=== PATIENT | female | born 1970 | race Caucasian/White ===

== ENCOUNTER → 2021-01-29 14:00 | Outpatient (BNVA) | payer OTHER, SELFPAY | PROVIDERS: PCP Internal Medicine; Visit Provider Urology | DX: R31.29 Other microscopic hematuria (principal); N39.41 Urge incontinence; N39.3 Stress incontinence (female) (male) | CPT/HCPCS: 81002 ==

== ENCOUNTER → 2021-04-08 15:00 | Outpatient (BNVA) | payer OTHER, SELFPAY | PROVIDERS: PCP Internal Medicine; Visit Provider Urology | DX: N30.90 Cystitis, unspecified without hematuria (principal); N39.46 Mixed incontinence; N31.9 Neuromuscular dysfunction of bladder, unspecified; E78.00 Pure hypercholesterolemia, unspecified; E55.9 Vitamin D deficiency, unspecified | CPT/HCPCS: 52000 ==

== ENCOUNTER → 2021-07-20 15:09 | Outpatient (BNVA) | payer OTHER, SELFPAY | PROVIDERS: PCP Internal Medicine; Visit Provider Urology | DX: N30.90 Cystitis, unspecified without hematuria (principal); R31.29 Other microscopic hematuria; N32.81 Overactive bladder; N39.3 Stress incontinence (female) (male); N88.2 Stricture and stenosis of cervix uteri; M79.7 Fibromyalgia; E78.00 Pure hypercholesterolemia, unspecified; E55.9 Vitamin D deficiency, unspecified; Z23 Encounter for immunization; Z79.2 Long term (current) use of antibiotics; Z79.899 Other long term (current) drug therapy | CPT/HCPCS: 52000 ==

== ENCOUNTER → 2023-06-19 10:00 | Outpatient (REF) | payer OTHER, SELFPAY | LOC: HO.SL 10:00 | PROVIDERS: PCP Internal Medicine; Visit Provider Psychiatry & Neurology Neurology | DX: G47.33 Obstructive sleep apnea (adult) (pediatric) (principal) | CPT/HCPCS: 95806 ==

== ENCOUNTER → 2023-06-19 19:00 | Outpatient (BNV) | payer OTHER, SELFPAY | PROVIDERS: PCP Internal Medicine; Visit Provider Internal Medicine | DX: G47.33 Obstructive sleep apnea (adult) (pediatric) (principal) | CPT/HCPCS: 95806 ==

== ENCOUNTER 2023-11-06 08:24 | Outpatient (AMB) | payer OTHER, SELFPAY ==
--- NOTE | 2023-11-06 08:38 | A.OFFVIS_ITS ---
Intake Intake Visit Reasons: Cystitis follow up SET Intake Note: Former Patient of Dr Segura, presents today for a follow-up on Cystitis: Meds- Oxybutynin (not taking at the moment out of refills) Allergies to Antibiotic- No Known Allergies Blood Thinner- None Post Void Residual: 0 mL Solution Professional Required: No Accompanied by: Self / Same As Patient Allergies No Known Allergies [No Known Allergies*] Allergy (Verified 11/06/23 08:42) Medication List - Last Reconciled 11/06/23 by Kiera Avila MD amoxicillin-pot clavulanate 875-125 mg 1 tab PO BID duloxetine 60 mg PO DAILY duloxetine 20 mg PO DAILY fexofenadine 180 mg PO DAILY hydrochlorothiazide 25 mg PO DAILY nortriptyline mg PO oxybutynin chloride ER 10 mg PO DAILY 90 days pregabalin 150 mg PO BID pregabalin 0 mg PO BEDTIME triamcinolone acetonide 0.1% appl topical HPI HPI Comments History of Present Illness Details Luci is a 53 year old female. She has been evaluated and treated in the past by Dr. Segura for microscopic hematuria and irritative voiding symptoms. She was prescribed oxybutynin 10 mg XL daily which she states has helped and since she has been off of the medication her bladder leakage has worsened. Pt is on daily HCTZ. She has been off of prophlaxatic abx for over a year and denies UTI symptoms Microscopic hematuria evaluation 2017 Cytology negative Cystoscopy with biopsy negative - patchy cystitis Imaging negative Associated conditions smoking, denies work place exposure Urinary incontinence Some degree of resolution with treatment for recurrent UTI Combination oxybutynin with trimethoprim 2020 Baseline treatment now oxybutynin Plan: 11/06/23--Oxybutynin 10 mg ER daily FU one year [facility] Medical History Hypercholesterolemia Cervical stenosis (uterine cervix) Fibromyalgia Vitamin D deficiency Stress incontinence Urgency incontinence Surgical History History of surgery Review of Systems Const All systems reviewed & are unremarkable except as noted in HPI and below Reports no additional complaints Eyes Reports no additional complaints ENT Reports no additional complaints Card Denies dyspnea Resp Denies cough and Denies dyspnea GI Reports no additional complaints Reports no additional complaints Musc Reports no additional complaints Skin/Breast Denies rash and Denies unusual bruising Neuro Reports no additional complaints Psych Reports no additional complaints Endo Reports no additional complaints Justin/Lymph Reports no additional complaints Aller/Immun Reports no additional complaints Physical Exam Const General: cooperative, healthy appearing and no acute distress Orientation/consciousness: patient oriented x3 HEENT Head: Yes normal to inspection, Yes normocephalic and Yes atraumatic Eyes Conjunctivae: conjunctivae normal Neck Neck: Yes normal visual inspection and Yes trachea midline Chest Chest palpation & inspection: normal inspection of the chest Resp Effort & Inspection: normal respiratory effort Cardio Rate: regular rate GI Inspection: Yes normal to inspection Palpation (GI): Soft to palpation Skin General skin exam: no rashes or lesions noted Neuro General: patient oriented x3 Extrem General: No edema Psych Appearance: grossly normal Office Procedures Post Void Residual Post Residual Void Post Void Residual (PVR): 0 42615-Fspb Void Residual by ultrasound Results AMB Urinalysis, Automated UA Leukoctes 0 Minh/uL Last Edit by RHYS Lemos on 11/06/23 08:54 UA Nitrite Negative Last Edit by RHYS Lemos on 11/06/23 08:54 UA Urobilinogen 0.2 mg/dL Last Edit by RHYS Lemos on 11/06/23 08:5 4 UA Protein 30 mg/dL Last Edit by RHYS Lemos on 11/06/23 08:54 1+ Karen Trammell 11/06/23 08:54 UA pH 6.5 Last Edit by RHYS Lemos on 11/06/23 08:54 UA Blood 10 Silverio/uL Last Edit by RHYS Lemos on 11/06/23 08:54 UA Specific [place] 1.015 Last Edit by RHYS Lemos on 11/06/23 08: 54 UA Ketone Negative Last Edit by RHYS Lemos on 11/06/23 08:54 UA Bilirubin 0 mg/dL Last Edit by RHYS Lemos on 11/06/23 08:54 UA Glucose 0 mg/dL Last Edit by RHYS Lemos on 11/06/23 08:54 Results Reviewed Results Reviewed: Laboratory Last Values Urine pH (Auto) 6.5 11/06/23 08:51 Specific [place] (Auto) 1.015 11/06/23 08:51 Urine Protein (Auto) 30 mg/dL 11/06/23 08:51 Glucose (UA)(Auto) 0 mg/dL 11/06/23 08:51 Urine Ketones (Auto) Negative 11/06/23 08:51 Urine Blood (Auto) 10 Silverio/uL 11/06/23 08:51 Urine Nitrite (Auto) Negative 11/06/23 08:51 Urine Bilirubin (Auto) 0 mg/dL 11/06/23 08:51 Urine Urobilinogen (Auto) 0.2 mg/dL 11/06/23 08:51 Leukocyte Esterase (Auto) 0 Minh/uL 11/06/23 08:51 Assessment & Plan Assessment & Plan (1) Cystitis: Code(s): N30.90 - Cystitis, unspecified without hematuria (2) Microscopic hematuria: Code(s): R31.29 - Other microscopic hematuria Plan Oxybutynin 10 mg ER daily FU one year Orders: Orders AMB Post Void Residual by ultrasound Today N39.8 - Other specified disorders of urinary system AMB Urinalysis Automated Today Z13.9 - Encounter for screening, unspecified Medications: Refilled oxybutynin chloride ER 10 mg PO DAILY 90 tabs 3RF 90 days N32.81 - Overactive bladder, R39.15 - Urgency of urination Patient Instructions: The patient had an opportunity to ask questions regarding treatment plan. All questions were answered. Laboratory studies and physical exam results were discussed and reviewed in detail. No major barriers to understanding were identified. The patient expressed understanding and agreement with the above treatment plan. The patient is aware they should contact our office by phone for worsening of their current condition or the appearance of new symptoms. Compliance is encouraged with any medications and followup testing that is ordered. It is a privilege to be allowed the opportunity to participate in the urologic care of your patient. If you have any questions or concerns regarding treatment for the above conditions please do not hesitate to contact me. The office telephone contact is [phone]. This note is constructed in part using voice recognition software. While every effort has been made to ensure accuracy hurl shaker errors may have been included. Yours sincerely, Kiera Avila MD Coding Level of Care Code New Pt Level 3 (95055) Diagnoses Cystitis N30.90 Microscopic hematuria R31.29 CPT Codes Post Residual Void - PVR CPT Code: 44212-Hady Void Residual by ultrasound ([id number])
== END 2023-11-06 09:20 | disposition home or self-care (01) ==
PROVIDERS: PCP Internal Medicine; Visit Provider Urology
DX: N30.90 Cystitis, unspecified without hematuria (principal); R31.29 Other microscopic hematuria; Z13.9 Encounter for screening, unspecified
CPT/HCPCS: 99203

== ENCOUNTER → 2023-11-06 08:24 | Outpatient (BNVA) | payer OTHER, SELFPAY | PROVIDERS: PCP Internal Medicine; Visit Provider Urology | DX: N30.91 Cystitis, unspecified with hematuria (principal); R32 Unspecified urinary incontinence | CPT/HCPCS: 51798; 81003 ==

== ENCOUNTER 2025-02-27 16:06 | Outpatient (AMB) | payer MEDICAID, SELFPAY ==
--- OUTSIDE RECORDS SUMMARY | 2025-02-27 16:08 | XMS_ITS | Encounter Summary ---
Author Organization [employer] Address [address] [place] [address] Care Team Providers Care Marketing And Development Coordinator Name Role Phone Kay Logan MD Primary Care Provider [phone] Encounter Details Date Type Department Care Team ([facility] st Contact Info) Description 01/31/2025 Orders Only [facility]S [address] [place], [place] [id number] Provider, MD Alicia Social History Tobacco Use Types Packs/Day Years Used Date Smoking Tobacco: Some Days Cigarettes Passive Smoke Exposure: Past Smokeless Tobacco: Never Alcohol Use Standard Drinks/Week Comments Not Currently 0 (1 standard drink = 0.6 oz pur e alcohol) Housing Stability Answer Date Recorded What is your housing situation today? I have matt sing 01/29/[address] you li ve. Do you have problems with any of the following? None of the above 01/29/2025 Food Insecurity Answer Date Recorded Within the past 12 months, y ou worried that your food would run out before you got money to buy more: Never True 01/29/2025 Within the past 12 months,th e food you bought just didn't last and you didn't have enough money to get more: Never True Transportation Answer Date Recorded In the past 12 months, has l ack of transportation kept you from medical appts, meetings, work or from getting things needed for daily living? No 01/29/2025 Utilities Answer Date Recorded In the past 12 months, has t he electric, gas, oil or water company threatened to shut off services in your home? No 01/29/2025 Internet Access Answer Date Recorded Internet Access Q1 No 01/29/2025 Internet Access Q2 I do not want or need it 01/08 Comments No Sex and Gender Information Value Date Recorded Sex Assigned at Female 07/23/2024 11:59 AM EDT Legal Sex Female 11:49 AM EDT Gender Identity Female 07/23/2024 11:59 AM EDT Sexual Orientation Choose not to disclose 2023 11:59 AM EDT documented as of this encounter Plan of Treatment Upcoming Encounters Date Type Department Care Team (Late st Contact Info) Description 04/30/2025 8:30 AM EDT Office Visit [facility] P[facility]S [address] [place] [address] Kay Logan MD [address] [place] [address] documented as of this encounter Procedures Procedure Name Priority Date/Time Associated Diagnosis Comments HM MAMMOGRAPHY Routine 01/30/2025 4:26 PM EDT documented in this encounter Results * Hm Mammography (01/30/2025 4:26 PM EDT) Anatomical Region Laterality Modality Other Historical Provider HEALTH MAINTENANCE Final Result documented in this encounter Visit Diagnoses Not on filedocumented in this encounter Care Teams Marketing And Development Coordinator Relationship Specialty Start Date End Date Kay Logan MD [address] [place] [address] PCP - General Family Medicine 01/29/25 documented as of this encounter
--- NOTE | 2025-02-27 16:18 | A.OFFVIS_ITS ---
Intake Visit Reasons: 1 yr follow up Intake Note: Patient presents today for a 1 year follow-up Urology Meds- Oxybutynin Allergies to Antibiotic- No Known Allergies Blood Thinner- None PVR: 35mL Human Resources Trainer Required: No Accompanied by: Self / Same As Patient Allergies No Known Allergies (No Known Allergies*) Allergy (Verified 04/28/25 09:44) Medication List - Last Reconciled 02/27/25 by Kiera Avila MD cholecalciferol (vitamin D3) 25 mcg PO DAILY duloxetine 120 mg PO DAILY fexofenadine 180 mg PO DAILY hydrochlorothiazide 25 mg PO DAILY [id number] fum-folic ac 18 mg iron- 400 mcg (One-A-Day Women's Complete) tabs PO omeprazole 20 mg PO DAILY oxybutynin chloride ER 10 mg PO DAILY 90 days HPI Comments Details: 02/27/25-- History of Present Illness The patient is a 54-year-old female presenting with urinary incontinence and bladder spasms. She has been experiencing nocturnal urinary frequency, around three to four times nightly, accompanied by an urgent need to urinate. Bladder control becomes particularly challenging when she forgets to take her oxybutynin. Despite current management, she continues to experience urgency and frequent episodes of incontinence. Symptoms such as a sudden urge to urinate with little warning and episodes of urine gushing are prevalent. The diuretic hydrochlorothiazide, contributing to frequent urination, is noted to potentially exacerbate her symptoms. 10/27/23--Luci is a 53 year old female. She has been evaluated and treated in the past by Dr. Segura for microscopic hematuria and irritative voiding symptoms. She was prescribed oxybutynin 10 mg XL daily which she states has helped and since she has been off of the medication her bladder leakage has worsened. Pt is on daily HCTZ. She has been off of prophlaxatic abx for over a year and denies UTI symptoms Microscopic hematuria evaluation 2017 Cytology negative Cystoscopy with biopsy negative - patchy cystitis Imaging negative Associated conditions smoking, denies work place exposure Urinary incontinence Some degree of resolution with treatment for recurrent UTI Combination oxybutynin with trimethoprim 2020 Baseline treatment now oxybutynin Plan: 11/06/23--Oxybutynin 10 mg ER daily FU one year [facility] Medical History Hypercholesterolemia Cervical stenosis (uterine cervix) Fibromyalgia Vitamin D deficiency Stress incontinence Urgency incontinence Surgical History History of surgery Review of Systems Const All systems reviewed & are unremarkable except as noted in HPI and below Reports no additional complaints Eyes Reports no additional complaints ENT Reports no additional complaints Card Reports no additional complaints Resp Reports no additional complaints GI Reports no additional complaints Reports as per HPI Musc Reports no additional complaints Skin/Breast Reports system reviewed and no additional complaints, except as documented Neuro Reports no additional complaints Psych Reports no additional complaints Endo Reports no additional complaints Justin/Lymph Reports no additional complaints Aller/Immun Reports no additional complaints Assessment & Plan Assessment & Plan (1) Urge incontinence: Code(s): N39.41 - Urge incontinence Category: Medical Plan Plan - Schedule an ultrasound appointment to check your kidneys and bladder. - Continue taking oxybutynin Medications: Refilled oxybutynin chloride ER 10 mg PO DAILY 90 tabs 0RF 90 days R39.15 - Urgency of urination, N32.81 - Overactive bladder Patient Instructions: The patient had an opportunity to ask questions regarding treatment plan. The patient expressed understanding and agreement with the above treatment plan. The patient is aware they should contact our office by phone for worsening of their current condition or the appearance of new symptoms. Compliance is encouraged with any medications and followup testing that is ordered. It is a privilege to be allowed the opportunity to participate in the urologic care of your patient. If you have any questions or concerns regarding treatment for the above conditions please do not hesitate to contact me. The office telephone contact is [phone]. This note is constructed in part using voice recognition software. While every effort has been made to ensure accuracy guncotton packer errors may have been included. Yours sincerely, Kiera Avila MD Scribe Plan - Not visible on output: Patient was informed and verbally consented to the use of an ambient scribe for clinic note documentation during this visit. Coding Level of Care Code Est Pt Level 3 (42039) Diagnoses Urge incontinence N39.41
== END 2025-02-27 17:00 | disposition home or self-care (01) ==
LOC: HO.HUSH 16:07
PROVIDERS: PCP Student in an Organized Health Care Education/Training Program; Visit Provider Urology
DX: N39.41 Urge incontinence (principal)
CPT/HCPCS: 99213

== ENCOUNTER → 2025-02-27 16:06 | Outpatient (BNVA) | payer MEDICAID, SELFPAY | PROVIDERS: PCP Student in an Organized Health Care Education/Training Program; Visit Provider Urology | DX: N39.41 Urge incontinence (principal); Z79.899 Other long term (current) drug therapy | CPT/HCPCS: 99212 ==

== ENCOUNTER 2025-04-21 09:49 | Outpatient (REF) | payer MEDICAID, SELFPAY ==
--- NOTE | ~2025-04-21 | US_ITS ---
CLINICAL HISTORY: N30.90 - Cystitis, unspecified without hematuria US Renal Comparison: None provided Findings: Right kidney normal size and echotexture, 10.3 cm length. 3 x 3 x 3 mm stone of the midpole and 2 x 2 x 3 mm stone of the lower pole. Left kidney normal size and echotexture, 10.5 cm length. No hydronephrosis of either kidney. Normal color Doppler IMPRESSION: Right kidney stones. This document has been electronically signed by: Marisol Greenwood MD on 04/21/2025 16:00:34
--- OUTSIDE RECORDS SUMMARY | 2025-04-21 10:21 | XMS_ITS | Encounter Summary ---
Author Organization [employer] Address [address] [place] [address] Care Team Providers Care Central Service Tech Name Role Phone Kay Logan MD Primary Care Provider [phone] Reason for Visit * Reason Onset Date Comments Nurse Triage 03/19/2025 Encounter Details Date Type Department Care Team ([facility] st Contact Info) Description 03/19/2025 Telephone [facility] [address] [place] [address] Kay Logan MD [address] [place], [place] [id number] Nurse Triage Social History Tobacco Use Types Packs/Day Years Used Date Smoking Tobacco: Some Days Cigarettes Passive Smoke Exposure: Past Smokeless Tobacco: Never Alcohol Use Standard Drinks/Week Comments Not Currently 0 (1 standard drink = 0.6 oz pur e alcohol) Housing Stability Answer Date Recorded What is your housing situation today? I have matt mehta 01/29/[address] you li [...] AM EDT documented as of this encounter Miscellaneous Notes * Telephone Encounter - Shama Jain RN - 03/19/2025 9:10 AM EDT Triage call Pt reports driving to [place] 03/15/25 and started to have moderate low back pain. Pt is concerned that this could indicate a UTI. Pt doesn't have any other symptoms indicating this and hasdx of fibromyalgia so is questioning what is the source of the back pain. Pt has taken muscle relaxer medication as prescribed, aspercream and other topical analgesics as well as tylenol arthritis without relief. Pt denies back injury or heavy lifting. ASK apt in [facility] today at 1120am to rule outUTI. Pt agrees with this disposition. Pt is encouraged to increase liquid intake . Insurance is verified as active prior to booking. Protocol Used: Urinary Symptoms (Adult) Protocol-Based Disposition: See in Office or Video Visit Today or Tomorrow Video visit not offered Positive Triage Question: * Patient wants to be seen * All higher-acuity triage questions were negative Care Advice Discussed: * Reasons To Call Back - Fever occurs - Pain or burning with urination - You become worse * Telephone Encounter - Cedric Crowley - 03/19/2025 8:57 AM EDT Symptom: Back Pain - Not From Injury Outcome: Schedule an urgent appointment (within 1 hour) or talk to a nurse or provider soon Reason: Weakness of the groin area Please contact pt at [phone]. documented in this encounter Plan of Treatment Upcoming Encounters Date Type Department Care Team (Thang vasquez Contact Info) Description 04/30/2025 8:30 AM EDT Office Visit [facility]S [address] [place] [address] Kay Logan MD [address] [place] [address] documented as of this encounter Visit Diagnoses Not on filedocumented in this encounter Care Teams Central Service Tech Relationship Specialty Start Date End Date Kay Logan MD [address] [place] [address] PCP - General Family Medicine 01/29/25 documented as of this encounter
--- OUTSIDE RECORDS SUMMARY | 2025-04-21 10:21 | XMS_ITS | Clinical Summary ---
Author Organization [facility] [address] [place] [address] [place] [id number] Phone Care Team Providers Care Carry In Worker Name Role Phone Jory Keith MD Primary Care Provider [phone] Allergies Active Allergy Reactions Criticality Noted Date Comments Gold Keratinate 01/05/2021 Positive patch test Rosin 01/05/2021 Positive patch test Medications ACETAMINOPHEN ORAL Take by mouth. Activ e albuterol HFA (PROAIR HFA ; PROVENTIL HFA ; VENTOLIN HFA) 90 mcg/actuation inhaler Inhale 2 Puffs into the lungs every 4 hours as needed for Cough or Wheezing. 4 Active betamethasone, augmented, (DIPROLENE-AF) 0.05 % cream Apply topically daily. For 2 wks- skip a wk then start again- DERM Active cholecalciferol (VITAMIN D-3) 25 mcg (1,000 unit) tablet Take by mouth. Ac tive DULoxetine (CYMBALTA) [address] capsule Take 2 capsules (120 mg total) by mouth 1 (one) time each day. 3 Active fexofenadine (DELMI) 180 mg tablet Take 1 tablet (180 mg total) by mouth 1 (one) time each day. 2 Active fluticasone propionate (FLONASE) 50 mcg/actuation nasal spray 2 Sprays by Each Nare route daily. 4 Active multivitamin with minerals (Multiple Vitamin-Mineral s) tablet Take by mouth. Activ e omeprazole (PriLOSEC) [address] capsule Take 1 capsule (20 mg total) by mouth 1 (one) time each day. 4 Active oxyBUTYnin XL (DITROPAN-XL) 10 mg 24 hr tablet Take 1 tablet (10 mg total) by mouth 1 (one) time each day. 1 Active tiZANidine (ZANAFLEX) 2 mg tablet Take 1-2 Tablets by mouth every 8 hours as needed (muscle pain/spasm). 4 Active hydroCHLOROthia zide (HYDRODIURIL) 25 mg tablet TAKE 1 TABLET BY MOUTH EVERY DAY 30 tablet 5 Active Active Problems Problem Noted Date Diagnosed Date Severe obesity (BMI 35.0-35. 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 Low back pain 08/23/2010 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 Encounters Date Type Department Care Team Description 01/30/2025 10:31 AM EDT - 01/30/2025 11:59 PM EDT Hospital Encounter Radiology Department [address] [phone] Encounter for screening mammogram for breast cancer Discharge Disposition: Home or Self Care from Last 3 Months Immunizations Name Administration Dates Next Due Hepatitis B (Xnzedqd-T-Pidel , Recombivax HB-Adult) 19yo and older 07/31/2019,06/28/2019 Influenza trivalent, 0.5mL, preservative free (Fluarix; FluLaval; Fluzone) ages 6mo and older (Afluria) 3 years and older 08/01/2023,07/23/2022,08/22/2021,2019,06/24/2019 Influenza, Unspecified 07/23/2020 Pfizer (ages 12 & older) Biv alent, COVID-19 09/29/2023 Td Tetanus diptheria (Tdvax) 7yo and older 12/17/2003 Tdap Tetanus diptheria acell ular pertussis (Boostrix; Adacel) 7yo and older 10/17/2011 Surgical History Surgery Date Site/Laterality Comments OTHER SURGICAL HISTORY 12/2018 PROCEDURE: MAMMOGRAM WISDOM TOOTH EXTRACTION 04/2010 PROCEDURE: HISTORICAL WISDOM TEETH EXTRACTION; COMMENT: 3 out; hx some parotid swelling COLONOSCOPY 11/02/2012 PROCEDURE: HISTORICAL COLONOSCOPY; COMMENT: normal; repeat in 10 yrs BREAST BIOPSY 2015 Left PROCEDURE: BX BREAST; PERC NEEDLE CORE W/IMAG GUID; COMMENT: lt breast bx-benign OTHER SURGICAL HISTORY PROCEDURE: HISTORICAL SQUAMOUS CELL CA; COMMENT: SCC 04/26 right knee (in situ) CHOLECYSTECTOMY 08/2022 PROCEDURE: HISTORICAL CHOLECYSTECTOMY Medical History Medical History Date Comments Pyelonephritis, unspecified 1993 DX:P yelonephritis, unspecified Allergic rhinitis due to other allergen 06/11/2010 DX:Allergic rhinitis due to other allergen Historical Medical DX 06/11/2010 DX:Xanthel asma Low back pain 08/23/2010 DX:Low back pain 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 DX:Preglaucoma Retinal freckle 08/02/2012 DX:Retinal freck le Hypercholesterolemia 08/05/2013 DX:Hypercho lesterolemia Cervical spinal stenosis 06/08/2016 DX:Cerv ical spinal stenosis; COMMENT: C5-6 History of tibial fracture 07/19/2017 DX:Hi story of tibial fracture; COMMENT: 02/22 tib fib fx, ghazal and plate placed Urinary incontinence 07/19/2017 DX:Urinary incontinence Anxiety 02/20/2019 DX:Anxiety History of squamous cell car cinoma of skin 04/29/2019 DX:History of squamous cell carcinoma of skin; COMMENT: SCC 04/26 right knee (in situ) Itching 09/14/2020 DX:Itching Vitamin D deficiency 10/11/2016 DX:Vitamin D deficiency GERD (gastroesophageal reflux disease) 02/05/2024 DX:GERD (gastroesophageal reflux disease) Hypertension 05/04/2021 Family History Medical History Relation Name Comments Breast cancer Aunt m aunt epilepsy Heart attack Brother Other: epilepsy Daughter Other: peripheral vascular disease Father diabetes, arthritis Lung cancer Maternal Grandmother diabete s CABG Mother diabetes, arthr itis Diabetes Paternal Grandfather Asthma Sister Other: epilepsy Son Relation Name Status Comments Aunt m aunt Alive Brother Daughter Father Maternal Grandmother Mother Paternal Grandfather Sister Son Social History Tobacco Use Types Packs/Day Years Used Date Smoking Tobacco: Every Day Cigarettes Smokeless Tobacco: Never Alcohol Use Standard Drinks/Week Comments Not Currently 0 (1 standard drink = 0.6 oz pur e alcohol) Comments No Sex and Gender Information Value Date Recorded Sex Assigned at Not on file Legal Sex Female 1:30 PM EST Gender Identity Not on file Sexual Orientation Not on file Obstetrics History Para Term AB IAB SAB Ectopic Multiple Livin g Live Births 3 3 3 3 Date Outcome GA Total Labor Labor/2nd/3rd Weight Sex Type Anes PTL Zehra A1 A5 Name Clin Term Term Term Last Filed Vital Signs Vital Sign Reading Time Taken Comments Blood Pressure 120/84 04/01/2024 3:53 PM EDT Pulse 76 04/01/2024 3:53 PM EDT Temperature - - Respiratory Rate - - Oxygen Saturation 97% 08/30/2023 8:44 AM EST @ rest on R.A. Inhaled Oxygen Concentration - - Weight 83.9 kg (185 lb) 04/01/2024 3:53 PM EDT Height 157.5 cm (5' 2 ) 04/01/2024 3:53 PM EDT Body Mass Index 33.84 04/01/2024 3:53 PM EDT Plan of Treatment Upcoming Encounters Date Type Department Care Team (Late st Contact Info) Description 02/04/2026 9:40 AM EDT Appointment Radiology Department [address] [phone] Health Maintenance Due Date Last Done Comments Zoster Vaccines (1 of 2) 2018 Hepatitis B Vaccines (3 of 3 - 19+ 3-dose series) 12/27/2019 07/31/2019, 06/28/2019 Depression Screening 09/17/2022 HIV Screening 09/17/2022 Social Influencers of Health Screening 09/17/2022 COVID-19 Vaccine (4 - 2023- season) 2024 09/29/2023, 11/03/2020, 10/13/2020 Hypertension/CHF/CAD Annual BMP Blood Test 10/26/2024 10/26/2023 Influenza Vaccine (#1) 2025 , 07/23/2022, 08/22/2021, Additional history exists Cervical Cancer Screening: HPV 03/19/2026 03/19/2021 Breast Cancer Screening 01/30/2027 01/31/20, 01/24/2024, 01/16/2023, Additional history exists Cholesterol Screening (Lipid Panel) 10/26/2028 10/26/2023 Colorectal Cancer Screening: Colonoscopy 02/09/2033 02/09/2023 DTaP,Tdap,and Td Vaccines (4 - Td or Tdap) 01/29/2035 01/29/2025, 10/17/2011, 12/17/2003 Hepatitis C Screening Completed 03/24/2022 Pneumococcal Vaccine: 50+ Years Completed 01/29/2025 HIB Vaccines Aged Out No longer eligi ble based on patient's age to complete this topic HPV Vaccines Aged Out No longer eligi ble based on patient's age to complete this topic Hepatitis A Vaccines Aged Out No long er eligible based on patient's age to complete this topic IPV Vaccines Aged Out No longer eligi ble based on patient's age to complete this topic MMR Vaccines Aged Out No longer eligi ble based on patient's age to complete this topic Meningococcal ACWY Vaccine Aged Out N o longer eligible based on patient's age to complete this topic Meningococcal B Vaccine Aged Out No l onger eligible based on patient's age to complete this topic RSV Immunization Patients Under 20 months Aged Out No longer eligible based on patient's age to complete this topic Varicella Vaccines Aged Out No longer eligible based on patient's age to complete this topic Procedures Procedure Name Priority Date/Time Associated Diagnosis Comments MG MAMMO DIGITAL SCREENING W BALDEMAR BILAT Routine 01/30/2025 10:50 AM EDT Encounter for screening mammogram for breast cancer ANNUAL BMP BLOOD TEST Routine 10/26/2023 LIPID PANEL Routine 10/26/2023 COLONOSCOPY Routine 02/09/2023 HEPATITIS C SCREENING Routine 03/24/2022 HPV Routine 03/19/2021 from Last 3 Months or Most Recently Relevant to Health Maintenance Results * MG Mammo Digital Screening w Baldemar bilat (01/30/2025 10:50 AM EDT) Anatomical Region Laterality Modality Breast Bilateral Mammography 01/31/2025 11:2 1 AM EDT Impressions 01/31/2025 11:27 AM EDT 1. No mammographic evidence of malignancy 2. Scattered fibroglandular tissue BI-RADS CATEGORY: 2 - BENIGN RECOMMENDATION: Screening bilateral mammogram is recommended in 1 year. Mammo Location: [facility], [address] [place] [address], [phone], . -------- FINAL REPORT -------- Dictated By: Constantine Rogers Dictated Date: 01/31/2025 11:21 ET Assigned Physician: Constantine Rogers Reviewed and Electronically Signed By: Constantine Rogers Signed Date: 01/31/2025 11:27 ET Workstation ID: [id number] Transcribed By: Self Edit Transcribed Date: 01/31/2025 11:21 ET Narrative 01/31/2025 11:27 AM EDT A BILATERAL DIGITAL 3D SCREENING MAMMOGRAPHY HISTORY: Routine screening. Family history of breast cancer in aunt COMPARISON: Multiple priors dating back to 01/01/2021 Technique: Bilateral full field digital mammography (3D) was performed using standard CC and MLO projections CAD was used to evaluate this mammogram. FINDINGS: Right: No suspicious masses, groups of microcalcification or areas of architectural distortion identified. Stable typically benign parenchymal asymmetries. Left: No suspicious masses, groups of microcalcification or areas of architectural distortion identified. Stable typically benign parenchymal asymmetries. Lateral breast biopsy markers at middle depth. BREAST DENSITY: B - There are scattered areas of fibroglandular density. Procedure Note Constantine Rogers MD - 01/31/2025 A BILATERAL DIGITAL 3D SCREENING MAMMOGRAPHY HISTORY: Routine screening. Family history of breast cancer in aunt COMPARISON: Multiple priors dating back to 01/01/2021 Technique: Bilateral full field digital mammography (3D) was performedusing standard CC and MLO projections CAD was used to evaluate this mammogram. FINDINGS: Right: No suspicious masses, groups of microcalcification or areas ofarchitectural distortion identified. Stable typically benign parenchymalasymmetries. Left: No suspicious masses, groups of microcalcification or areas ofarchitectural distortion identified. Stable typically benign parenchymalasymmetries. Lateral breast biopsy markers at middle depth. BREAST DENSITY: B - There are scattered areas of fibroglandular density. IMPRESSION: 1. No mammographic evidence of malignancy 2. Scattered fibroglandular tissue BI-RADS CATEGORY: 2 - BENIGN RECOMMENDATION: Screening bilateral mammogram is recommended in 1 year. Mammo Location: [facility], [address] [place] [address], [phone], . -------- FINAL REPORT -------- Dictated By: Constantine Rogers Dictated Date: 01/31/2025 11:21 ET Assigned Physician: Constantine Rogers Reviewed and Electronically Signed By: Constantine Rogers Signed Date: 01/31/2025 11:27 ET Workstation ID: [id number] Transcribed By: Self Edit Transcribed Date: 01/31/2025 11:21 ET us Jory Keith MD [facility] BI PROCEDURES Final Resul t * Annual BMP Blood Test (10/26/2023) Annual BMP Blood Test abstracted Historical Provider [facility] Final Result * (ABNORMAL) Lipid panel (10/26/2023) LDL/HDL Ratio 4 0 - 4 Triglycerides 116 0 - 150 mg/dL Cholesterol 233(A) 0 - 200 mg/dL HDL 56 >=40 mg/dL LDL Cholesterol 154(A) 0 - 100 mg/dL Blood Venous blood specimen / Unknown [facility] Provider LAB BLOOD ORDERABLES [place] Result * Colonoscopy (02/09/2023) [facility] Colonoscopy abnormal, abstracted Anatomical Region Laterality Modality Other [facility] Provider HEALTH MAINTENANCE Final Result * Hepatitis C Screening (03/24/2022) [facility] Hepatitis C Screening abstracted [facility] Provider HEALTH MAINTENANCE Final Result * Cervical Cancer Screening: HPV (03/19/2021) [facility] Cervical Cancer Screening: HPV negative, abstracted [facility] Provider HEALTH MAINTENANCE Final Result from Last 3 Months or Most Recently Relevant to Health Maintenance Insurance MEDICAID - [place] Care Teams Carry In Worker Relationship Specialty Start Date End Date Jory Keith MD [address] [place] [phone] PCP - General Internal Medicine 01/09/25
== END 2025-04-21 09:50 | disposition home or self-care (01) ==
LOC: HO.US 09:49
PROVIDERS: PCP Student in an Organized Health Care Education/Training Program; Visit Provider Urology
DX: N30.90 Cystitis, unspecified without hematuria (principal)
CPT/HCPCS: 76775

== ENCOUNTER → 2025-04-21 09:51 | Outpatient (BNV) | payer MEDICAID, SELFPAY | PROVIDERS: PCP Student in an Organized Health Care Education/Training Program; Visit Provider Nuclear Medicine | DX: N20.0 Calculus of kidney (principal) | CPT/HCPCS: 76775 ==

== ENCOUNTER 2025-04-28 09:27 | Outpatient (REF) | payer MEDICAID, SELFPAY ==
--- OUTSIDE RECORDS SUMMARY | 2025-04-28 12:10 | XMS_ITS | Encounter Summary ---
Author Organization [employer] Address [address] [facility] 7[address] [place] [address] Care Team Providers Care Access Service Representative Name Role Phone Kay Logan MD Primary Care Provider [phone] Reason for Visit * Reason Onset Date Comments Nurse Triage 03/19/2025 Encounter Details Date Type Department Care Team ([facility] st Contact Info) Description 03/19/2025 Telephone [facility] MEDICINE [address] [place] [address] Kay Logan MD [address] [place], [place] [id number] Nurse Triage Social History Tobacco Use Types [...] EDT Triage call Pt reports driving to [place] 03/15/25 and started to have moderate low [...] injury or heavy lifting. ASK apt in [facility] today at 1120am to rule outUTI. [...] the groin area Please contact pt at [phone]. documented in this encounter Plan of Treatment Upcoming Encounters Date Type Department Care Team (Thang vasquez Contact Info) Description 04/30/2025 8:30 AM EDT Office Visit [facility] MED & PEDS [address] [place] [address] Kay Logan MD [address] [place] [address] documented as of this encounter Visit Diagnoses Not on filedocumented in this encounter Care Teams Access Service Representative Relationship Specialty Start Date End Date Kay Logan MD [address] [place] [address] PCP - General Family Medicine 01/29/25 documented as of this encounter
--- OUTSIDE RECORDS SUMMARY | 2025-04-28 12:10 | XMS_ITS | Clinical Summary ---
Author Organization [facility] [address] [place] [address] [place] [phone] Phone Care Team Providers Care Electronic Publishing Specialist Name Role Phone Jory Keith MD Primary Care Provider [phone] Allergies Active Allergy Reactions Criticality Noted Date [...] 11:59 PM EDT Hospital Encounter Radiology Department [address] [address] Encounter for screening mammogram for breast cancer Discharge Disposition: Home or Self Care from Last 3 Months Immunizations Name Administration Dates Next Due Hepatitis B (Mhijnnd-W-Cqeib , Recombivax HB-Adult) 19yo and older 07/31/2019,06/28/2019 [...] 02/04/2026 9:40 AM EDT Appointment Radiology Department [address] [address] Health Maintenance Due Date Last Done Comments Zoster Vaccines (1 of 2) 2018 Hepatitis B Vaccines (3 of 3 - 19+ 3-dose series) 12/27/2019 07/31/2019, 06/28/2019 HIV Screening 09/17/2022 Social Influencers of Health Screening 09/17/2022 COVID-19 Vaccine ( - 2023- season) 2024 09/29/2023, 11/03/2020, 10/13/2020 Depression Screening 10/09/2024 Hypertension/CHF/CAD Annual BMP Blood Test 10/26/2024 10/26/2023 [...] is recommended in 1 year. Mammo Location: [facility], [address] [place] [address], [phone], . -------- FINAL REPORT -------- Dictated By: Constantine Rogers Dictated Date: 01/31/2025 11:21 ET Assigned Physician: Constantine Rogers Reviewed and Electronically Signed By: Constantine Rogers Signed Date: 01/31/2025 11:27 ET Workstation ID: [id number] Transcribed By: Self Edit Transcribed Date: 01/31/2025 [...] is recommended in 1 year. Mammo Location: [facility], [address] [place] [address], [id number], . -------- FINAL REPORT -------- Dictated By: Constantine Rogers Dictated Date: 01/31/2025 11:21 ET Assigned Physician: Constantine Rogers Reviewed and Electronically Signed By: Constantine Rogers Signed Date: 01/31/2025 11:27 ET Workstation ID: [id number] Transcribed By: Self Edit Transcribed Date: 01/31/2025 11:21 ET us Jory Keith MD [facility] BI PROCEDURES Final Resul t * Annual BMP Blood Test (10/26/2023) Annual BMP Blood Test abstracted Historical Provider [facility] MAINTENANCE Final Result * (ABNORMAL) Lipid panel (10/26/2023) LDL/HDL Ratio 4 0 - 4 Triglycerides 116 0 - 150 mg/dL Cholesterol 233(A) 0 - 200 mg/dL HDL 56 >=40 mg/dL LDL Cholesterol 154(A) 0 - 100 mg/dL Blood Venous blood specimen / Unknown [facility] Provider LAB BLOOD ORDERABLES Mague l Result * Colonoscopy (02/09/2023) [facility] Colonoscopy abnormal, abstracted Anatomical Region Laterality Modality Other [facility] Provider HEALTH MAINTENANCE Final Result * Hepatitis C Screening (03/24/2022) [facility] Hepatitis C Screening abstracted [facility] Provider HEALTH MAINTENANCE Final Result * Cervical Cancer Screening: HPV (03/19/2021) [facility] Cervical Cancer Screening: HPV negative, abstracted [facility] Provider HEALTH MAINTENANCE Final Result from Last 3 Months or Most Recently Relevant to Health Maintenance Insurance MEDICAID - [place] Care Teams Electronic Publishing Specialist Relationship Specialty Start Date End Date Jory Keith MD [address] [place] [phone] PCP - General Internal Medicine 01/09/25
[2025-04-28 13:27] LABS: Alanine Aminotransferase 95 U/L (0-31); Albumin Level 3.8 g/dL (3.5-5.0); Alkaline Phosphatase 157 U/L (39-117); Anion Gap 12 (12-20); Aspartate Amino Transferase 56 U/L (5-31); Blood Urea Nitrogen 14 mg/dL (9-16); Calcium 8.9 mg/dL (8.4-10.2); Carbon Dioxide 30 mmol/L (22-29); Chloride 107 mmol/L (96-108); Cholesterol 232 mg/dL (<200); Estimated Glomerular Filt Rate > 60; HDL Cholesterol 53 mg/dL (>40); Potassium 4.7 mmol/L (3.3-5.1); Sodium 144 mmol/L (135-145); Total Protein 6.6 g/dL (6.5-8.0); Triglycerides 90 mg/dL (<150)
== END 2025-04-28 09:28 | disposition home or self-care (01) ==
LOC: HO.HHCL 09:27
PROVIDERS: PCP Student in an Organized Health Care Education/Training Program; Visit Provider Urology
DX: I10 Essential (primary) hypertension (principal); E78.00 Pure hypercholesterolemia, unspecified; Z13.9 Encounter for screening, unspecified
CPT/HCPCS: 36415; 52000; 80048; 80061; 80076; 81003; 99212

== ENCOUNTER 2025-04-28 09:27 | Outpatient (AMB) | payer MEDICAID, SELFPAY ==
--- NOTE | 2025-04-28 09:41 | A.OFFVIS_ITS ---
Intake Visit Reasons: cysto/US Intake Note: Patient presents today for a cystoscopy/US follow up * Renal US 04/21 Urology Meds- Oxybutynin Allergies to Antibiotic- No Known Allergies Blood Thinner- None Lot #:[id number] Exp:01/02/28 Spinning Mule Operator Required: No Accompanied by: Self / Same As Patient Allergies No Known Allergies (No Known Allergies*) Allergy (Verified 04/28/25 09:44) Medication List - Last Reconciled 04/28/25 by Kiera Avila MD cholecalciferol (vitamin D3) 25 mcg PO DAILY duloxetine 120 mg PO DAILY fexofenadine 180 mg PO DAILY hydrochlorothiazide 25 mg PO DAILY [id number] fum-folic ac 18 mg iron- 400 mcg (One-A-Day Women's Complete) tabs PO omeprazole 20 mg PO DAILY oxybutynin chloride ER 10 mg PO DAILY 90 days HPI Comments Details: 04/28/25--here for office cystoscopy. History of microscopic hematuria, and overactive bladder symptoms Cystoscopy findings: bladder wall thickening, no suspicious bladder lesions visualized Pelvic exam-no significant prolapse noted. No leakage with Valsalva. Results:renal US 04/21/25-- right renal calculi, x2 --3 mm,and 2mm Plan--- Botox injections in the bladder were discussed. I have discussed risks to include hematuria, UTI, urinary retention, need to repeat procedure for sustained efficacy. Patient wants to trial an increase in the oxybutynin. Oxybutynin 15 mg sent to the pharmacy. Follow-up in a few months to re-evaluate urinary symptoms. - Renal stones will be monitored, with no immediate intervention necessary. - Skin irritation to be addressed by using protective measures. 02/27/25--The patient is a 54-year-old female presenting with urinary incontinence and bladder spasms. She has been experiencing nocturnal urinary frequency, around three to four times nightly, accompanied by an urgent need to urinate. Bladder control becomes particularly challenging when she forgets to take her oxybutynin. Despite current management, she continues to experience urgency and frequent episodes of incontinence. Symptoms such as a sudden urge to urinate with little warning and episodes of urine gushing are prevalent. 10/27/23--Luci is a 53 year old female. She has been evaluated and treated in the past by Dr. Segura for microscopic hematuria and irritative voiding symptoms. She was prescribed oxybutynin 10 mg XL daily which she states has h elped and since she has been off of the medication her bladder leakage has worsened. Pt is on daily HCTZ. She has been off of prophlaxatic abx for over a year and denies UTI symptoms Microscopic hematuria evaluation 2017 Cytology negative Cystoscopy with biopsy negative - patchy cystitis Imaging negative Associated conditions smoking, denies work place exposure Urinary incontinence Some degree of resolution with treatment for recurrent UTI Combination oxybutynin with trimethoprim 2020 Baseline treatment now oxybutynin, Plan: 11/06/23--Oxybutynin 10 mg ER daily. FU one year [facility] Medical History Hypercholesterolemia Cervical stenosis (uterine cervix) Fibromyalgia Vitamin D deficiency Stress incontinence Urgency incontinence Surgical History History of surgery Review of Systems Const All systems reviewed & are unremarkable except as noted in HPI and below Reports no additional complaints Eyes Reports no additional complaints ENT Reports no additional complaints Card Reports no additional complaints Resp Reports no additional complaints GI Reports no additional complaints Reports as per HPI Musc Reports no additional complaints Skin/Breast Reports system reviewed and no additional complaints, except as documented Neuro Reports no additional complaints Psych Reports no additional complaints Endo Reports no additional complaints Justin/Lymph Reports no additional complaints Aller/Immun Reports no additional complaints Office Procedures Cystoscopy Consent Discussed risk and benefit or proposed procedure with the patient. Information consent for procedure given to the patient. Discussed technical aspects, risks, benefits and alternatives in full. Addressed all of the patient's questions and concerns regarding the procedure. The patient demonstrated knowledge and understanding. They wish to proceed with this procedure. Preparation The patient was prepped in the usual manner. A fiscal analyst was present and in the room. Genitalia was prepped with betadine solution in a sterile manner. Lidocaine Jelly 2% was placed into the urethra and 16Fr flexible Olympus cystoscope was inserted into the meatus after adequate lubrication. Procedure Time out per protocol performed. Speculum used as indicated for adequate visualization of urethra, the flexible cystoscope is passed transurethrally: The bladder was inspected in its entirety with utilization retroflexion displaying: Tumor(s): no suspicious bladder lesions visualized Trabeculation: Mild to Moderate Mucosal Erthema: NA Orifices: normal shape and position Urethra: normal Cystoscopy findings: bladder wall thickening, no suspicious bladder lesions visualized [id number] DISPOSABLE SCOPE URO-G FLEXIBLE SCOPE Procedure code (CPT) selection complete Office Meds lidocaine HCl 2 % mucosal jelly in applicator Performing Provider: Kiera Avila MD Performing Location: [facility] Administered by: Sixto Ortega LPN on 04/28/25 09:58 Dose Route Admin Location Dispensed Lot Number Expiration Date NDC Super[employer] 10 mL intra-urethral 20 mL ciprofloxacin HCl 500 mg tablet Performing Provider: Kiera Avila MD Performing Location: [facility] Administered by: Sixto Ortega LPN on 04/28/25 09:58 Dose Route Admin Location Dispensed Lot Number Expiration Date NDC Super[employer] 500 mg PO 1 tab phenazopyridine 200 mg tablet Performing Provider: Kiera Avila MD Performing Location: [facility] Administered by: Sixto Ortega LPN on 04/28/25 09:58 Dose Route Admin Location Dispensed Lot Number Expiration Date NDC Super[employer] 200 mg PO 1 tab Results Reviewed Results Reviewed: Date of Service: 04/21/25 US Renal Comparison: None provided Findings: Right kidney normal size and echotexture, 10.3 cm length. 3 x 3 x 3 mm stone of the midpole and 2 x 2 x 3 mm stone of the lower pole. Left kidney normal size and echotexture, 10.5 cm length. No hydronephrosis of either kidney. Normal color Doppler IMPRESSION: Right kidney stones. Assessment & Plan Assessment & Plan (1) Bladder wall thickening: Code(s): N32.89 - Other specified disorders of bladder Category: Medical (2) Microscopic hematuria: Code(s): R31.29 - Other microscopic hematuria Category: Medical (3) Urge incontinence: Code(s): N39.41 - Urge incontinence Category: Medical (4) Right renal stone: Code(s): N20.0 - Calculus of kidney Category: Medical Plan Plan--- Botox injections in the bladder were discussed. I have discussed risks to include hematuria, UTI, urinary retention, need to repeat procedure for sustained efficacy. Patient wants to trial an increase in the oxybutynin. Oxybutynin 15 mg sent to the pharmacy. Follow-up in a few months to re-evaluate urinary symptoms. Orders: Orders AMB Cystoscopy Today N30.90 - Cystitis, unspecified without hematuria, N39.3 - Stress incontinence (female) (male), N39.41 - Urge incontinence, R31.29 - Other microscopic hematuria Medications: New oxybutynin chloride ER 15 mg PO DAILY 30 tabs 5RF Discontinued oxybutynin chloride ER Discontinued Reason: Doctor's Order 10 mg PO DAILY 90 days 90 tabs 0RF N32.81 - Overactive bladder, R39.15 - Urgency of urination Patient Instructions: The patient had an opportunity to ask questions regarding treatment plan. The patient expressed understanding and agreement with the above treatment plan. The patient is aware they should contact our office by phone for worsening of their current condition or the appearance of new symptoms. Compliance is encouraged with any medications and followup testing that is ordered. It is a privilege to be allowed the opportunity to participate in the urologic care of your patient. If you have any questions or concerns regarding treatment for the above conditions please do not hesitate to contact me. The office telephone contact is [phone]. This note is constructed in part using voice recognition software. While every effort has been made to ensure accuracy maxillofacial pathology errors may have been included. Yours sincerely, Kiera Avila MD Scribe Plan - Not visible on output: Patient was informed and verbally consented to the use of an ambient scribe for clinic note documentation during this visit. Coding Level of Care Code Est Pt Level 4 (98834) Diagnoses Bladder wall thickening N32.89 Microscopic hematuria R31.29 Urge incontinence N39.41 Right renal stone N20.0 CPT Codes Cystoscopy - CPT: 62684-Cstiiixest ([id number])
== END 2025-04-28 10:41 | disposition home or self-care (01) ==
LOC: HO.HUSH 09:27
PROVIDERS: PCP Student in an Organized Health Care Education/Training Program; Visit Provider Urology
DX: R31.29 Other microscopic hematuria (principal); N30.90 Cystitis, unspecified without hematuria; N39.41 Urge incontinence; N39.3 Stress incontinence (female) (male); N32.89 Other specified disorders of bladder; N20.0 Calculus of kidney; Z13.9 Encounter for screening, unspecified
CPT/HCPCS: 52000; 99214

== ENCOUNTER 2025-06-11 08:54 | Outpatient (REF) | payer MEDICAID, SELFPAY ==
--- NOTE | 2025-06-11 08:57 | EMG_ITS ---
Chief complaint: Left foot numbness. History of fibromyalgia. History of chronic back pain. Reason for referral: Evaluate for neuropathy Referred by: Dr. Logan Procedure done: Left lower extremity NCS/EMG Precautions and/or limitations: None The limb temperature was monitored continuously and remained between 32-36 degrees C during the performance of the NCS. Nerve Conduction Studies Anti Sensory Summary Table ?Stim Site NR Onset (ms) Norm Onset (ms) Peak (ms) Norm Peak (ms) O-P Amp (?V) Norm O-P Amp Site1 Site2 Delta-0 (ms) Dist (cm) Darrick (m/s) Norm Darrick (m/s) Left Sural Anti Sensory (Lat Mall) Calf ? 2.9 3.5 <4.0 10.1 >5.0 Calf Lat Mall 2.9 14.0 48 Motor Summary Table ?Stim Site NR Onset (ms) Norm Onset (ms) O-P Amp (mV) Norm O-P Amp iAmp (mV) Amp (1st) (%) Site1 Site2 Delta-0 (ms) Dist (cm) Darrick (m/s) Norm Darrick (m/s) Left Peroneal Motor (Ext Dig Brev) Ankle ? 3.8 <4.0 5.2 >2.5 6.4 100.0 Ankle Ext Dig Brev 3.8 0.0 B Fib ? 9.5 4.5 5.6 86.5 B Fib Ankle 5.7 30.5 54 >40 Poplt ? 10.0 4.5 5.6 86.5 Poplt B Fib 0.5 4.0 80 >40 Left Tibial Motor (Abd Coker Brev) Ankle ? 3.4 <5 19.2 >2.5 27.3 100.0 Ankle Abd Coekr Brev 3.4 0.0 Knee ? 10.5 12.9 18.9 67.2 Knee Ankle 7.1 38.0 54 >40 EMG ?Side Muscle Nerve Root Ins Act Fibs Psw Amp Dur Poly Recrt Int Pat Comment Left AbdHallucis MedPlantar S1-2 Nml Nml Nml Nml Nml 0 Nml Complete Left AntTibialis Dp Br Peron L4-5 Nml Nml Nml Nml Nml 0 Nml Complete Left PostTibialis Tibial L5, S1 Nml Nml Nml Nml Nml 0 Nml Complete Left MedGastroc Tibial S1-2 Nml Nml Nml Nml Nml 0 Nml Complete Left VastusMed Femoral L2-4 Nml Nml Nml Nml Nml 0 Nml Complete FINDINGS: All motor and sensory nerves tested showed normal latencies, amplitudes and conduction velocities. Concentric needle EMG was performed in selected muscles of the left lower extremity. Study did not reveal signs of electric abnormalities as shown in the table above. IMPRESSION: 1. This is a normal study. 2. There is no electrodiagnostic evidence for peroneal neuropathy, tibial neuropathy, lumbosacral plexopathy, lumbar radiculopathy, or peripheral neuropathy. Thank you for your kind referral. Ame Peck MD, BETH Board Certified, [place] Board of Physical Medicine and Rehabilitation (ABPMR) Board Certified, [place] Board of Electrodiagnostic Medicine (ABEM) [place] [id number] [facility]
--- OUTSIDE RECORDS SUMMARY | 2025-06-11 09:28 | XMS_ITS | Encounter Summary ---
Author Organization [facility] [employer] Address [address] [facility] 7t [place] [address] Care Team Providers Care Range Master Name Role Phone Kay Logan MD Primary Care Provider [phone] Reason for Visit * Reason Onset Date Comments Nurse Triage 03/19/2025 Encounter Details Date Type Department Care Team ([facility] st Contact Info) Description 03/19/2025 Telephone [facility] MEDICINE [address] [place] [address] Kay Logan MD [address] [place], [place] [phone] Nurse Triage Social History Tobacco Use Types [...] EDT Triage call Pt reports driving to [place] 03/15/25 and started to have moderate low back pain. Pt isconcerned that this could indicate a UTI. Pt doesn't have any other symptoms indicating this and has dx of fibromyalgia so is questioning what is the source of the back pain. Pt has taken muscle relaxer medication as prescribed, aspercream and other topical analgesics as well as tylenol arthritis without relief. Pt denies back injury or heavy lifting. ASK apt in [facility] today at 1120am to rule out UTI. Pt agrees with this disposition. Pt is [...] the groin area Please contact pt at [phone]. documented in this encounter Plan of Treatment Not on file documented as of this encounter Visit Diagnoses Not on filedocumented in this encounter Care Teams Range Master Relationship Specialty Start Date End Date Kay Logan MD [address] [place] [address] [place] [id number] PCP - General Family Medicine 01/29/25 documented as of this encounter
--- OUTSIDE RECORDS SUMMARY | 2025-06-11 09:28 | XMS_ITS | Clinical Summary ---
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 Immunizations Name Administration Dates Next Due Hepatitis B (Fdxompn-E-Ufzvc , Recombivax HB-Adult) 19yo and older 07/31/2019,06/28/2019 [...] 02/04/2026 9:40 AM EDT Appointment Radiology Department [address] [address] Health Maintenance Due Date Last Done Comments Zoster Vaccines (1 of 2) 2018 Hepatitis B Vaccines (3 of 3 - 19+ 3-dose series) 12/27/2019 07/31/2019, 06/28/2019 HIV Screening 09/17/2022 Social Influencers of Health Screening 09/17/2022 COVID-19 Vaccine ( season) 2024 09/29/2023, 11/03/2020, 10/13/2020 Depression Screening 10/09/2024 Hypertension/CHF/CAD Annual BMP Blood Test 10/26/2024 10/26/2023 Influenza Vaccine (#1) 2025 3, 07/23/2022, 08/22/2021, Additional history exists Cervical Cancer Screening: HPV 03/19/2026 03/19/2021 Breast Cancer Screening 01/30/2027 01/31/20 25, 01/24/2024, 01/16/2023, Additional history exists Cholesterol Screening [...] is recommended in 1 year. Mammo Location: [facility], [address] [place] [address], [phone], . -------- FINAL REPORT -------- Dictated By: Constantine Rogers Dictated Date: 01/31/2025 11:21 ET Assigned Physician: Constantine Rogers Reviewed and Electronically Signed By: Constantine Rogers Signed Date: 01/31/2025 11:27 ET Workstation ID: [id number] Transcribed By: Self Edit Transcribed Date: 01/31/2025 [...] is recommended in 1 year. Mammo Location: [facility], [address] [place] [address], [phone], . -------- FINAL REPORT -------- Dictated By: Constantine Rogers Dictated Date: 01/31/2025 11:21 ET Assigned Physician: Constantine Rogers Reviewed and Electronically Signed By: Constantine Rogers Signed Date: 01/31/2025 11:27 ET Workstation ID: [id number] Transcribed By: Self Edit Transcribed Date: 01/31/2025 11:21 ET Jory Keith MD IMG BI PROCEDURES Final Resul t * Annual BMP Blood Test (10/26/2023) Pathologist [facility] Annual BMP Blood Test abstracted Historical Provider HEALTH MAINTENANCE Final Result * (ABNORMAL) Lipid panel (10/26/2023) Pathologist [facility] LDL/HDL Ratio 4 0 - 4 Triglycerides 116 0 - 150 mg/dL Cholesterol 233(A) 0 - 200 mg/dL HDL 56 >=40 mg/dL LDL Cholesterol 154(A) 0 - 100 mg/dL Blood Venous blood specimen / Unknown Historical Provider LAB BLOOD ORDERABLES [place] l Result * Colonoscopy (02/09/2023) Colonoscopy abnormal, abstracted Anatomical Region Laterality Modality Other Historical Provider HEALTH MAINTENANCE Final Result * Hepatitis C Screening (03/24/2022) Pathologist [facility] Hepatitis C Screening abstracted Historical Provider HEALTH MAINTENANCE Final Result * Cervical Cancer Screening: HPV (03/19/2021) Pathologist [facility] Cervical Cancer Screening: HPV negative, abstracted Historical Provider HEALTH MAINTENANCE Final Result from Last 3 Months or Most Recently Relevant to Health Maintenance Insurance MEDICAID - [place] Care Teams Dinkey Locomotive Operator Relationship Specialty Start Date End Date Jory Keith MD [address] [place] [phone] PCP - General Internal Medicine 01/09/25
--- OUTSIDE RECORDS SUMMARY | 2025-06-11 09:28 | XMS_ITS | Encounter Summary ---
Author Organization [employer] Address [address] [facility] 7t [place] [address] Care Team Providers Care Advanced Nursing Professor Name Role Phone Kay Logan MD Primary Care Provider [phone] Reason for Visit * Reason Onset Date Comments Med Refill 03/19/2025 Encounter Details Date Type Department Care Team ([facility] st Contact Info) Description 03/19/2025 Refill [facility] MEDICINE [address] [place] [address] Kay Logan MD [address] [place] [address] Social History Tobacco Use Types Packs/Day Years [...] as of this encounter Plan of Treatment Not on file documented as of this encounter Visit Diagnoses Not on filedocumented in this encounter Care Teams Advanced Nursing Professor Relationship Specialty Start Date End Date Kay Logan MD [address] [place] [id number] PCP - General Family Medicine 01/29/25 documented as of this encounter
--- OUTSIDE RECORDS SUMMARY | 2025-06-11 09:28 | XMS_ITS | Clinical Summary ---
Author Organization [employer] Address [address] [facility] 7[address] [place] [address] Care Team Providers Care Correction Officer [facility] Name Role Phone Kay Logan MD Primary Care Provider [phone] Allergies Active Allergy Reactions Criticality Noted Date Comments Gold 01/05/2021 Positive patch test Pinus Strobus 01/05/2021 Positive patch test Pollen Extract 01/06/2025 gold Medications oxybutynin XL (Ditropan-XL) 10 MG 24 hr tablet TAKE 1 TABLET BY MOUTH EVERY DAY FOR 90 DAYS. Active multivitamin with minerals (Centrum) 9-200 mg-mcg tablet split tablet Take 1 tablet by mouth. 1 Active cholecalciferol (Vitamin D-3) 25 MCG (1000 UT) capsule Take by mouth. 1 Active albuterol 108 (90 Base) MCG/ACT inhaler Inhale 2 puffs every 4 (four) hours if needed. 4 Active fluticasone (Flonase) 50 MCG/ACT nasal spray Administer 100 mcg into affected nostril(s) Once per day. 4 Active tiZANidine (Zanaflex) 2 MG tabletIndication s:Fibromyalgia Take 1-2 tablets (2-4 mg) by mouth every 8 (eight) hours if needed for muscle spasms. 30 tablet 5 Active fexofenadine (Susan) 180 MG tablet Take 1 tablet (180 mg) by mouth Once per day. 30 tablet 11 5 01/30/20 26 Active DULoxetine (Cymbalta) [address] capsule TAKE 1 CAPSULE BY MOUTH TWICE A DAY 180 capsule 5 Active omeprazole (PriLOSEC) [address] capsule TAKE 1 CAPSULE BY MOUTH EVERY DAY 90 capsule 5 Active baclofen (Lioresal) 10 MG tabletIndication s:Acute low back pain without sciatica, unspecified back pain laterality Take 1 tablet (10 mg) by mouth 3 times daily. 30 tablet 5 Active hydroCHLOROthiaz vernell (HYDRODiuril) 25 MG tablet TAKE 1 TABLET BY MOUTH EVERY DAY 90 tablet 5 Active diclofenac (Cataflam) 50 MG tablet Take 1 tablet (50 mg) by mouth 3 times daily. 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 Reviewed small frequent meals, Encouraged pt to follow up with pcp regarding lobsterman therapy on ppi Hepatic steatosis 12/13/2022 Hypertension 05/04/2021 Chronic pruritus 09/14/2020 History of squamous cell carcinoma of skin 04/29 Overview (07/23/2024): SCC 04/26 right knee (in situ) Assessment & Plan (09/11/2024 6:13 PM EST): Referral to derm Anxiety 02/20/2019 Severe obesity (BMI 35.0-35.9 with comorbidity) 05/21/2018 History of tibial fracture 07/19/2017 Overview (07/23/2024): 02/22 left tib fib fx, ghazal and plate placed Urinary incontinence 07/19/2017 Fibromyalgia 08/04/2016 Overview (07/23/2024): Assessment & Plan (09/11/2024 6:13 PM EST): Pt requesting refill of previously prescribed dose, renewed Will establish with pcp Cervical spinal stenosis 06/08/2016 Overview (07/23/2024): C5-6 Ductal hyperplasia of breast 12/07/2015 Overview (01/06/2025): No atypia, left Hypercholesterolemia 08/05/2013 Overview (07/23/2024): As of 04/04/22 - declining statin - wants to make serious diet/exercise efforts and recheck in 3 months 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 Encounters Date Type Department Care Team Description 06/05/2025 Telephone [facility] [address] [place] [address] Harriet Jeffery MD 05/22/2025 Telephone [facility] [address] [place] [address] Harriet Jeffery MD 2025 Orders Only [facility] [address] [place] [address] Kay Logan MD Neuropathy of left lower extremity (Primary Dx) 2025 Telephone [place] [employer] [address] [place] [phone] Kay Logan MD nerve conduction order 04/30/2025 8:30 AM EDT Office Visit [facility] [address] [place] [address] Kay Logan MD Neuropathy of left lower extremity (Primary Dx); Cervical spinal stenosis; Screening for colon cancer 04/30/2025 Travel 04/21/2025 Orders Only [facility] External Provider, [facility] 03/19/2025 11:20 AM EDT Office Visit [facility] [address] [place] [address] Harriet Jeffery MD Acute low back pain without sciatica, unspecified back pain laterality (Primary Dx); Dysuria 03/19/2025 Travel 03/19/[address] [facility] [address] [facility] [facility] [place] [phone] Kay Logan MD 03/19/[address] [facility] [address] [facility] [place] [phone] Kay Logan MD Nurse Triage 03/12/[address] [facility] [address] [facility] [place] [place] [phone] Kay Logan MD from Last 3 Months Immunizations Immunization Administration Dates Next Due Hep B, adult 07/31/2019,06/28/2019 Influenza injectable quadriv alent preservative free 08/01/2023,07/23/2022,08/22/2021,2019,06/24/2019 Influenza, IIV3, injectable 06/24/2019 Influenza, Unspecified 07/23/2020 Influenza, seasonal, injecta ble, preservative free 08/01/2023,07/23/2022,08/22/2021,2019,06/24/2019 Pneumococcal Conjugate PCV 20 01/29/2025 TD (adult), 2 Lf tetanus tox oid, preservative free, adsorbed 12/17/2003 Td (adult), unspecified 12/17/2003 Tdap 01/29/2025,10/17/2011 Family History Medical History Relation Name Comments Heart attack Brother Diabetes Father Breast cancer Mother's Sister Asthma Sister Relation Name Status Comments Brother Father Mother Alive Mother's Sister Alive Sister Alive Social History Tobacco Use Types Packs/Day Years Used Date Smoking Tobacco: Some Days Cigarettes Passive Smoke Exposure: Past Smokeless Tobacco: Never Tobacco Cessation:Ready to Q uit: Not Asked; Counseling Given: Not Answered Alcohol Use Standard Drinks/Week Comments Not Currently 0 (1 standard drink = 0.6 oz pur e alcohol) Housing Stability Answer Date Recorded What is your housing situation today? I have mattnancy mehta 01/29/[address] you [...] the past 12 months, has t he [employer], oil or water company threatened to shut [...] not to disclose 2023 11:59 AM EDT Last Filed Vital Signs Vital Sign Reading Time Taken Comments Blood Pressure 120/75 04/30/2025 8:40 AM EDT Pulse 80 04/30/2025 8:40 AM EDT Temperature 36.2 C (97.1 F) 04/30/2025 8:40 AM EDT Respiratory Rate 16 04/30/2025 8:40 AM EDT Oxygen Saturation 99% 04/30/2025 8:40 AM EDT Inhaled Oxygen Concentration - - Weight 84.8 kg (187 lb) 04/30/2025 8:40 AM EDT Height 157.5 cm (5' 2 ) 04/30/2025 8:40 AM EDT Body Mass Index 34.2 04/30/2025 8:40 AM EDT Plan of Treatment Health Maintenance Due Date Last Done Comments CT Colonography 1968 Colonoscopy 1968 Depression Screening 1968 FIT 1970 FOBT 1968 HIV Screening 1968 Sigmoidoscopy 1968 Hepatitis C Screening 1986 Hepatitis A Vaccines (1 of 2 - Risk 2-dose series) 1987 Pap Smear 1989 Cervical Cancer Screening 1998 HPV/Cotest 1998 Zoster Vaccines (1 of 2) 2018 Hepatitis B Vaccines (3 of 3 - 19+ 3-dose series) 12/27/2019 07/31/2019, 06/28/2019 COVID-19 Vaccine (4 - 2024- season) 2025 09/29/2023, 11/03/2020, 10/13/2020 Influenza Vaccine (#1) 2025 , 08/01/2023, 07/23/2022, Additional history exists Alcohol/Substance Use Screening 01/29/2026 01/29/2025 Disability Screening 01/29/2026 01/29/2025 SDOH Screening 01/29/2026 01/29/2025 Tobacco Screening 04/30/2026 04/30/2025 Mammogram 01/30/2027 01/30/2025, 01/08, 01/30/2025, Additional history exists Colorectal Cancer Screening 05/24/2028 FIT DNA/Cologuard 05/24/2028 05/24/2025 Lipid Panel 04/28/2030 04/28/2025 DTaP/Tdap/Td Vaccines (3 - Td or Tdap) 01/29/2035 01/29/2025, 10/17/2011, 12/17/2003, Additional history exists RSV Patients and Patients Aged 60 years or older (1 - 1-dose 75+ series) 2043 Pneumococcal Vaccine: 50+ Years Completed 01/29/2025 HIB [...] patient's age to complete this topic Meningococcal Vaccine Aged Out No dayami poncho eligible based on patient's age to complete this topic RSV under 20 months Aged Out No longe r eligible based on patient's age to complete this topic Rotavirus Vaccines Aged Out No longer eligible based on patient's age to complete this topic Procedures Procedure Name Priority Date/Time Associated Diagnosis Comments LAB COLOGUARD COLON CANCER SCREEN Routine 05/24/2025 9:45 AM EDT Screening for colon cancer HEPATIC FUNCTION PANEL Routine 04/28/2025 11:03 AM EDT Primary hypertension LIPID PANEL, STANDARD Routine 04/28/2025 11:03 AM EDT Primary hypertension Hypercholesterolemia BASIC METABOLIC PANEL Routine 04/28/2025 11:03 AM EDT Primary hypertension US RENAL COMPLETE Routine 04/21/2025 4:0 0 PM EDT POCT URINALYSIS DIPSTICK Routine 03/19/2025 11:33 AM EDT Dysuria Acute low back pain without sciatica, unspecified back pain laterality HM MAMMOGRAPHY Routine 01/30/2025 4:26 PM EDT from Last 3 Months or Most Recently Relevant to Health Maintenance Results * Cologuard?? colon cancer screening (05/24/2025 9:45 AM EDT) [facility] Cologuard Result Negative Negative 05/30/20 1:07 PM EDT [employer] (CLIA #:[id number]) Comment: The Cologuard (TM) test was performed on this specimen. NEGATIVE TEST RESULT. A negative Cologuard result indicates a low likelihood that a colorectal cancer (CRC) or advanced adenoma (adenomatous polyps with more advanced pre-malignant features) is present. The chance that a person with a negative Cologuard test has a colorectal cancer is less than 1 in 1500 (negative predictive value >99.9%) or has an advanced adenoma is less than 5.3% (negative predictive value 94.7%). These data are based on a prospective cross-sectional study of 10,000 individuals at average risk for colorectal cancer who were screened with both Cologuard and colonoscopy. (Netta Lott al, N Engl J Med 2014;370(14):1286- 1297) The normal value (reference range) for this assay is negative. COLOGUARD RE-SCREENING RECOMMENDATION: Periodic colorectal cancer screening is an important part of preventive healthcare for asymptomatic individuals at average risk for colorectal cancer. Following a negative Cologuard result, the [place] [employer] Society and U.S. Multi-Society Task Force screening guidelines recommend a Cologuard re-screening interval of 3 years. References: [place] [employer] Guideline for Colorectal Cancer Screening: https://www.cancer.org/cancer/ertxz-jisgdi-jnceto/zwgeczevl-bwyqgzaiu-xjzscgo/ac s-rec ommendations.html.; Austin DK, Sky CR, Katie CalderonK, Colorectal Cancer Screening: Recommendations for Physicians and Patients from the U.S. Multi-Society Task Force on Colorectal Cancer Screening , Am J Gastroenterology 2017; 112:8999-7050. TEST DESCRIPTION: Composite algorithmic analysis of stool DNA-biomarkers with hemoglobin immunoassay. Quantitative values of individual biomarkers are not reportable and are not associated with individual biomarker result reference ranges. Cologuard is intended for colorectal cancer screening of adults of either sex, 45 years or older, who are at average-risk for colorectal cancer (CRC). Cologuard has been approved for use by the U.S. FDA. The performance of Cologuard was established in a cross sectional study of average-risk adults aged 50-84. Cologuard performance in patients ages 45 to 49 years was estimated by sub-group analysis of near-age groups. Colonoscopies performed for a positive result may find as the most clinically significant lesion: colorectal cancer [4.0%], advanced adenoma (including sessile serrated polyps greater than or equal to 1cm diameter) [20%] or non- advanced adenoma [31%]; or no colorectal neoplasia [45%]. These estimates are derived from a prospective cross-sectional screening study of 10,000 individuals at average risk for colorectal cancer who were screened with both Cologuard and colonoscopy. (Netta Lott al, N Engl J Med 2014;370(14):1583-7622.) Cologuard may produce a false negative or false positive result (no colorectal cancer or precancerous polyp present at colonoscopy follow up). A negative Cologuard test result does not guarantee the absence of CRC or advanced adenoma (pre-cancer). The current Cologuard screening interval is every 3 years. ([place] Cancer Society and U.S. Multi-Society Task Force). Cologuard performance data in a 10,000 patient pivotal study using colonoscopy as the reference method can be accessed at the following location: www.Invenias.Capitaine Train/results. Additional description of the Cologuard test process, warnings and precautions can be found at www.Dumbstruckrd.com. Stool specimen (specimen) 05/24/2025 9:45 AM EDT 05/25/2025 10:39 PM EDT Kay Logan MD LAB MOLECULAR DIAGNOSTICS ORDERA BLES Final Result [employer] (CLIA #:[id number]) [address] [place] [address], * (ABNORMAL) Hepatic Function Panel (04/28/2025 11:03 AM EDT) Bilirubin, Total 0.2 0.0 - 1.0 mg/dL [facility] Bilirubin, Direct 0.2 0.0 - 0.5 mg/dL [facility] Aspartate Amino Transferase 56(H) 5 - 31 U/L [facility] Alanine Aminotransferase 95(H) 0 - 31 U/L [facility] Total Protein 6.6 6.5 - 8.0 g/dL [facility] Albumin Level 3.8 3.5 - 5.0 g/dL [facility] Alkaline Phosphatase 157(H) 39 - 117 U/L [facility] Blood Venous blood specimen / Unknown 04/28/2025 11:03 AM EDT 04/28/2025 12:57 PM EDT Kay Logan MD LAB BLOOD ORDERABLES Final Resul t [facility] [address] [place] [phone] * (ABNORMAL) Lipid Panel, Standard (04/28/2025 11:03 AM EDT) Triglycerides 90 <150 mg/dL [facility] Comment:Desirable Triglyceri de: less than 150 mg/dLBorderline High Triglyceride 150-199 mg/dLHigh Triglyceride: 200-499 mg/dLVery High Triglyceride: greater than or equal to 5OO mg/dL Cholesterol 232(H) <200 mg/dL [facility] Comment:Desirable Cholestero l: less than 200 mg/dLBorderline High Cholesterol: 200-239 mg/dLHigh Cholesterol: greater than 239 mg/dL LDL Cholesterol Calculated 161(H) <100 mg/dL [facility] Comment:Desirable LDL: less than 100 mg/dLNear Optimal/Above Optimal LDL: 110- 129 mg/dLBorderline High LDL: 130-159 mg/dLHigh LDL: 160-189 mg/dLVery High LDL: greater than or equal to 190 mg/dL HDL Cholesterol 53 >40 mg/dL [facility] Comment:Desirable HDL: great er than 40 mg/dL Note: This HDL assay may give artificially low results in patients with liver disease. Blood Venous blood specimen / Unknown 04/28/2025 11:03 AM EDT 04/28/2025 12:57 PM EDT us Kay Logan MD LAB BLOOD ORDERABLES Final Resul t [facility] [address] [place] [phone] * (ABNORMAL) Basic Metabolic Panel (04/28/2025 11:03 AM EDT) Sodium 144 135 - 145 mmol/L [facility] Potassium 4.7 3.3 - 5.1 mmol/L [facility] Chloride 107 96 - 108 mmol/L [facility] Carbon Dioxide 30(H) 22 - 29 mmol/L [facility] Anion Gap 12 12 - 20 [facility] Urea Nitrogen (BUN) 14 9 - 16 mg/dL [facility] Creatinine, Serum 0.67 0.5 - 1.4 mg/dL [facility] Estimated Glomerular Filt Rate >60 [facility] Comment:Chronic Kidney Disea se: Estimated GFR < 60 mL/min/1.12f5Uwcpic Kidney Disease: Estimated GFR < 15 mL/min/1.73m2 Glucose 78 60 - 115 mg/dL [facility] Calcium 8.9 8.4 - 10.2 mg/dL [facility] Blood Venous blood specimen / Unknown 04/28/2025 11:03 AM EDT 04/28/2025 12:57 PM EDT Kay Logan MD LAB BLOOD ORDERABLES Final Resul t [facility] [address] [place] [phone] * US Renal Complete (04/21/2025 4:00 PM EDT) Anatomical Region Laterality Modality Kidney Ultrasound 04/21/2025 4:00 PM EDT Narrative 04/21/2025 4:01 PM EDT [address] [address] Ultrasound Report Signed Patient: Luci Delcid MR#: [id number] : 1970 Acct:[id number] Age/Sex: 54 / F ADM Date: 04/21/25 Loc: HO.US Attending Dr: Kiera Avila MD Ordering Physician: Kiera Avila MD Date of Service: 04/21/25 Procedure(s): US renal BI Accession Number(s): [id number] cc: Kiera Avila MD; Kay Logan MD CLINICAL HISTORY: N30.90 - Cystitis, unspecified without hematuria US Renal Comparison: None provided Findings: Right kidney normal size and echotexture, 10.3 cm length. 3 x 3 x 3 mm stone of the midpole and 2 x 2 x 3 mm stone of the lower pole. Left kidney normal size and echotexture, 10.5 cm length. No hydronephrosis of either kidney. Normal color Doppler IMPRESSION: Right kidney stones. This document has been electronically signed by: Marisol Greenwood MD on 04/21/2025 16:00:34 Dictated By: Marisol Greenwood MD Signed By: <Electronically signed by Marisol Greenwood MD in OV> 04/21/25 1601 DD/ 1600 TD/TT: 04/21/251599 Block And Case Maker: Procedure Note Arabella, Image - 04/21/2025 [place] [address] Ultrasound Report Signed Patient: Luci Delcid EMR#: [id number] : 1970Acct:[id number] Age/Sex: 54 / FADM Date: 04/21/25 Loc: HO.US Attending Dr: Kiera Avila MD Ordering Physician: Kiera Avila MD Date of Service: 04/21/25 Procedure(s): US renal BI Accession Number(s): [id number] cc: Kiera Avila MD; Kay Logan MD CLINICAL HISTORY: N30.90 - Cystitis, unspecified without hematuria US Renal Comparison: None provided Findings: Right kidney normal size and echotexture, 10.3 cm length. 3 x 3 x 3 mm stone of the midpole and 2 x 2 x 3 mm stone of the lower pole. Left kidney normal size and echotexture, 10.5 cm length. No hydronephrosis of either kidney. Normal color Doppler IMPRESSION: Right kidney stones. This document has been electronically signed by: Marisol Greenwood MD on 04/21/2025 16:00:34 Dictated By: Marisol Greenwood MD Signed By: <Electronically signed by Marisol Greenwood MD in OV> 04/21/25 1601 DD/ 1600 TD/TT: 04/21/25 1600 Block And Case Maker: [facility] External Provider IMG US PROCEDURES Final Result * POCT Urinalysis (03/19/2025 11:33 AM EDT) Color, UA Yellow Clarity, UA Clear Glucose, UA Negative Bilirubin, UA Negative Ketones, UA Negative Spec Grav, UA 1.020 Blood, UA Negative Negative, None Detected pH, UA 7.0 Protein, UA Negative Urobilinogen, UA 0.2 Leukocytes, UA Negative Negative, Rare, Trace Nitrite, UA Negative Negative, None Detected Appearance, UA CLEAR QC Media Lot # [id number] Lot# Expiration Date Urine 03/19/2025 11:3 3 AM EDT Harriet Jeffery MD POINT OF CARE TEST ENTER/EDIT ORDERABLES Final Result * Hm Mammography (01/30/2025 4:26 PM EDT) Anatomical Region Laterality Modality Other Historical Provider HEALTH MAINTENANCE Final Result from Last 3 Months or Most Recently Relevant to Health Maintenance Insurance [employer] Care Teams [facility] Relationship Specialty Start Date End Date Kay Logan MD [address] [place] [address] PCP - General Family Medicine 01/29/25
--- OUTSIDE RECORDS SUMMARY | 2025-06-11 09:28 | XMS_ITS | Encounter Summary ---
Author Organization [employer] Address [address] [facility] [address] [place] [address] Care Team Providers Care Currency Exchange Specialist Name Role Phone Kay Logan MD Primary Care Provider [phone] Encounter Details Date Type Department Care Team (Late st Contact Info) Description 01/31/2025 Orders Only [facility] [address] [place], [place] [phone] Provider, MD Alicia Social History Tobacco Use [...] on file documented as of this encounter Procedures Procedure Name Priority Date/Time Associated Diagnosis Comments HM MAMMOGRAPHY Routine 01/30/2025 4:26 PM EDT documented in this encounter Results * Hm Mammography (01/30/2025 4:26 PM EDT) Anatomical Region Laterality Modality Other us Historical Provider HEALTH MAINTENANCE Final Result documented in this encounter Visit Diagnoses Not on filedocumented in this encounter Care Teams Currency Exchange Specialist Relationship Specialty Start Date End Date Kay Logan MD [address] [place] [phone] PCP - General Family Medicine 01/29/25 documented as of this encounter
== END 2025-06-11 08:55 | disposition home or self-care (01) ==
LOC: HO.NEURO 08:54
PROVIDERS: PCP Student in an Organized Health Care Education/Training Program; Visit Provider Student in an Organized Health Care Education/Training Program
DX: G57.92 Unspecified mononeuropathy of left lower limb (principal)
CPT/HCPCS: 95886; 95908

== ENCOUNTER → 2025-06-11 08:57 | Outpatient (BNV) | payer MEDICAID, SELFPAY | PROVIDERS: PCP Student in an Organized Health Care Education/Training Program; Visit Provider Physical Medicine & Rehabilitation | DX: R20.2 Paresthesia of skin (principal) | CPT/HCPCS: 95886; 95908 ==